=== PATIENT | male | born 1990 | race African-American/Black ===

== ENCOUNTER 2016-08-29 16:00 | Emergency (ER) | payer OTHER ==
[~2016-08-29] VITALS: Ht 180.3 cm; Wt 117.9 kg
[2016-08-29 16:10] VITALS: BP 154/92
[2016-08-29] MEDS ORDERED: ONDA4TAB10 SL (16:19)
--- NOTE | 2016-08-29 16:21 | ED.ADGEN ---
Past Medical History Past Medical History: Anxiety, Asthma, Hypertension Past Surgical History: Appendectomy Alcohol Use: None Drug Use: None Adult General Chief Complaint Chief Complaint: ABDOMINAL PAIN HPI HPI Patient is a 26 year old male presents emergency Department with a one-day history of nausea, vomiting, and diarrhea. Patient states that his symptoms of symptoms entirely resolve needs a note to go back to work. Patient denies any abdominal pain but did report that he gets a "bubbling" just prior to having the diarrhea. Patient denies any fever or chills. Review of Systems Review of Systems Constitutional: Denies fever or chills. [] Eyes: Denies change in visual acuity. [] HENT: Denies nasal congestion or sore throat. [] Respiratory: Denies cough or shortness of breath. [] Cardiovascular: Denies chest pain or edema. [] GI: Denies abdominal pain, nausea, vomiting, bloody stools or diarrhea. [] : Denies dysuria. [] Musculoskeletal: Denies back pain or joint pain. [] Integument: Denies rash. [] Neurologic: Denies headache, focal weakness or sensory changes. [] Endocrine: Denies polyuria or polydipsia. [] Lymphatic: Denies swollen glands. [] Psychiatric: Denies depression or anxiety. [] Allergies Allergies Allergies Coded Allergies Type Severity Reaction Last Updated Verified No Known Drug Allergies 08/29/16 No Physical Exam Physical Exam Constitutional: Well developed, well nourished, no acute distress, non-toxic appearance. [] HENT: Normocephalic, atraumatic, bilateral external ears normal, oropharynx moist, no oral exudates, nose normal. [] Eyes: PERRLA, EOMI, conjunctiva normal, no discharge. [] Neck: Normal range of motion, no tenderness, supple, no stridor. [] Cardiovascular:Heart rate regular rhythm, no murmur [] Lungs & Thorax: Bilateral breath sounds clear to auscultation [] Abdomen: Bowel sounds normal, soft, no tenderness, no masses, no pulsatile masses. [] Skin: Warm, dry, no erythema, no rash. [] Back: No tenderness, no CVA tenderness. [] Extremities: No tenderness, no cyanosis, no clubbing, ROM intact, no edema. [] Neurologic: Alert and oriented X 3, normal motor function, normal sensory function, no focal deficits noted. [] Psychologic: Affect normal, judgement normal, mood normal. [] Current Patient Data Vital Signs Vital Signs Date Time Temp Pulse Resp B/P Pulse Ox O2 Delivery O2 Flow Rate FiO2 08/29/16 16:10 98.0 109 18 95 Room Air 98.0 EKG EKG [] Radiology/Procedures Radiology/Procedures [] Course & Med Decision Making Course & Med Decision Making Pertinent Labs and Imaging studies reviewed. (See chart for details) Benign exam and no symptoms here. Patient was sent home with prescription for Zofran. He will follow-up with his doctor as needed and return to the emergency department sooner if he develops new or worsening symptoms. Impression: Gastroenteritis [] Dragon Disclaimer Dragon Disclaimer This electronic medical record was generated, in whole or in part, using a voice recognition dictation system. RUDY DEAN MD Aug 29, 2016 16:21
== END 2016-08-29 16:28 | disposition home or self-care (01) ==
LOC: ER 16:00
DX: K52.9 Noninfective gastroenteritis and colitis, unspecified (principal); I10 Essential (primary) hypertension; F41.9 Anxiety disorder, unspecified; J45.909 Unspecified asthma, uncomplicated; Z90.49 Acquired absence of other specified parts of digestive tract
CPT/HCPCS: 99283

== ENCOUNTER 2018-03-04 06:27 | Emergency (ER) | payer SELFPAY ==
[~2018-03-04] VITALS: Ht 180.3 cm; Wt 129.3 kg
[~2018-03-04 06:27] MED LIST: ONDA4TAB10 SL
--- NOTE | 2018-03-04 06:44 | PHYS DOC ---
Past Medical History Past Medical History: Anxiety, Asthma, Hypertension Past Surgical History: Appendectomy Alcohol Use: None Drug Use: None Adult General Chief Complaint Chief Complaint: SHORTNESS OF BREATH HPI HPI Patient is a 28 year old male who presents with anxiety. patient has a chronic hx of the same for which he takes prozac daily and xanax as needed. He states his xanax do not work to control his symptoms and sometimes needs to take 4 tablets at a time to gain relief. This morning, he was at work when he began to feel anxious and short of breath. He had onset of some MSK chest pain at the same time. He states the symptoms are exactly like prior anxiety symptoms. No CAD risk factors. Patient is nervous and anxious during the interview. He also states that his symptoms have been improved in the past after some breathing treatments. Review of Systems Review of Systems Constitutional: Denies fever or chills Eyes: Denies change in visual acuity HENT: Denies nasal congestion Respiratory: Denies cough or shortness of breath Cardiovascular: No additional information not addressed in HPI GI: Denies abdominal pain, nausea, vomiting : Denies dysuria or hematuria Musculoskeletal: Denies back pain Integument: Denies rash or skin lesions Neurologic: Denies headache All other systems were reviewed and found to be within normal limits, except as documented in this note. Current Medications Current Medications Current Medications Medications (Trade) Dose Ordered Sig/Estuardo Start Time Stop Time Status Last Admin Dose Admin Albuterol/ Ipratropium (Duoneb) 3 ml 1X ONCE 03/04/18 07:00 03/04/18 07:01 DC 03/04/18 06:56 3 ML Lorazepam (Ativan) 1 mg 1X ONCE 03/04/18 07:00 03/04/18 07:01 DC 03/04/18 06:56 1 MG Allergies Allergies Allergies Coded Allergies Type Severity Reaction Last Updated Verified No Known Drug Allergies 08/29/16 No Physical Exam Physical Exam Constitutional: Well developed, well nourished, no acute distress, non-toxic appearance HENT: Normocephalic, atraumatic, bilateral external ears normal, oropharynx moist Eyes: PERRLA, EOMI, conjunctiva normal Neck: Normal range of motion, no tenderness Cardiovascular:Heart rate regular rhythm, no murmur Lungs & Thorax: Bilateral breath sounds clear to auscultation Skin: Warm, dry, no erythema, no rash Back: No tenderness Extremities: No edema Neurologic: Alert and oriented X 3 Psychologic: Affect anxious, tearful Current Patient Data Vital Signs Vital Signs Date Time Temp Pulse Resp B/P (MAP) Pulse Ox O2 Delivery O2 Flow Rate FiO2 03/04/18 07:38 78 20 139/81 (100) 100 Room Air 03/04/18 06:29 98.0 98.0 EKG EKG No STEMI Interpretation Time: 07:25 Radiology/Procedures Radiology/Procedures [] Course & Med Decision Making Course & Med Decision Making Pertinent Labs and Imaging studies reviewed. (See chart for details) 06:45: Patient is seen and examined. Normal physical exam. Will give duoneb as he feels this has helped in the past. Ativan 1 mg IM. 07:35: EKG normal. Patient feeling improved. Plan for d/c to home. Patient advised to f/u with PCP regarding increasing his xanax dose. Has 0.5 mg tablets but states he has to take four of them at times to achieve sx relief. Family present and driving the patient home. He is agreeable to the plan of care. Dragon Disclaimer Dragon Disclaimer This electronic medical record was generated, in whole or in part, using a voice recognition dictation system. Departure Departure Referrals: UNKNOWN PCP NAME (PCP) MITCHEL PRIDE DO Mar 04, 2018 06:44
[2018-03-04] MEDS ORDERED: IPRATRPIUM/ALBUTEROL 0.5/2.5MG 3 ML NEBU. NEB ONE (07:00)
[2018-03-04 07:38] VITALS: BP 139/81
--- NOTE | 2018-03-04 12:35 | EKG ---
[facility] [address] [place] [address] Test Date: 2018-03-04 Test Time: 07:19:41 Pat Name: ANAID GAMEZ Department: Room: Gender: M Process Manufacturing Engineer: : 1990 Requested By: MITCHEL PRIDE Order Number: [id number] Reading MD: Mike Egan MD Measurements Intervals Campbell Rate: 68 P: 0 [place]: 164 QRS: 15 QRSD: 86 T: 0 QT: 390 QTc: 419 Interpretive Statements SINUS RHYTHM Electronically Signed On 03-07-2018 12:01:35 CDT by Mike Egan MD
== END 2018-03-04 07:38 | disposition home or self-care (01) ==
LOC: ER 06:27
DX: R06.02 Shortness of breath (principal); R07.89 Other chest pain; F41.9 Anxiety disorder, unspecified; J45.909 Unspecified asthma, uncomplicated; I10 Essential (primary) hypertension; Z90.89 Acquired absence of other organs
CPT/HCPCS: 93005; 94640; 96372; 99283; J2060; J7620

== ENCOUNTER 2019-11-27 09:10 | Emergency (ER) | payer BC, MEDICAID ==
[~2019-11-27] VITALS: Ht 180.3 cm; Wt 114.5 kg
[2019-11-27 09:51] LABS: BASO % 1 % (0-3); EOS # 0.1 x10^3/uL (0.0-0.7); EOS % 1 % (0-3); HEMATOCRIT 48.1 % (39.0-53.0); LYMPH % 37 % (24-48); MEAN CORPUSCULAR HEMOGLOBIN 29 pg (25-35); MEAN CORPUSCULAR HGB CONC 33 g/dL (31-37); MEAN CORPUSCULAR VOLUME 85 fL (79-100); MONO # 0.4 x10^3/uL (0.0-1.1); MONO % 8 % (0-9); NEUT # 2.9 x10^3/uL (1.8-7.7); NEUT % 53 % (31-73); PLATELET COUNT 201 x10^3/uL (140-400); RED BLOOD COUNT 5.63 x10^6/uL (4.30-5.70); RED CELL DISTRIBUTION WIDTH 14.4 % (11.5-14.5); WHITE BLOOD COUNT 5.4 x10^3/uL (4.0-11.0)
[2019-11-27 10:07] LABS: ALBUMIN 3.8 g/dL (3.4-5.0); CALCIUM 8.6 mg/dL (8.5-10.1); CREATININE 0.9 mg/dL (0.7-1.3); GFR 122.5; TOTAL BILIRUBIN 0.7 mg/dL (0.2-1.0); TOTAL PROTEIN 7.8 g/dL (6.4-8.2)
[2019-11-27 10:18] VITALS: BP 137/89
[2019-11-27] MEDS ORDERED: ONDA4TAB7 PO (10:49)
[2019-11-27] MEDS ORDERED: FAMO-63 PO (10:49)
--- NOTE | 2019-11-27 10:58 | PHYS DOC ---
Past Medical History Past Medical History: Anxiety, Asthma, Hypertension Additional Past Medical Histor: PREDIABETES Past Surgical History: Appendectomy Smoking Status: Former Smoker Alcohol Use: None Drug Use: None General Adult EDM: Chief Complaint: NAUSEA/VOMITING/DIARRHA HPI: HPI: Patient is a 29 year old male who presents with epigastric abdominal pain that has been ongoing for the last 4 or 5 days. He states that initially he had some diarrhea and nausea with it. He also had some vomiting. Over the last couple of days this is gotten better. He tried to go to work this morning and was sent here as they did not feel it was safe for him to be at work. He has not had any fevers, chills, sweats. He has been able to continue eating though it causes him bloating, gas, and pain. He has had something similar to this in the past and at that time was diagnosed with gastritis. He gets daily heartburn and bloating with eating prior to this. Review of Systems: Review of Systems: General: Denies fever, chills, sweats, fatigue Eyes: Denies drainage, blurred vision HENT: Denies rhinorrhea, sore throat Respiratory: Denies cough, shortness of breath, wheezing Cardiac: Denies edema, palpitations, chest pain GI: Reports abdominal pain, N/V MSK: Denies back pain, neck pain Skin: Denies rash, jaundice Neuro: Denies headache, dizziness Psychiatric: Denies SI/HI Heart Score: Risk Factors: Risk Factors: DM, Current or recent (<one month) smoker, HTN, HLP, family history of CAD, obesity. Risk Scores: Score 0 - 3: 2.5% MACE over next 6 weeks - Discharge Home Score 4 - 6: 20.3% MACE over next 6 weeks - Admit for Clinical Observation Score 7 - 10: 72.7% MACE over next 6 weeks - Early Invasive Strategies Allergies: Allergies: Allergies Coded Allergies Type Severity Reaction Last Updated Verified No Known Drug Allergies 11/27/19 No Physical Exam: PE: Constitutional: Well developed, well nourished, Cooperative, NAD, non-toxic appearing HEENT: Normocephalic, atraumatic, oropharynx moist, EOMI, PERRL, no drainage from eyes, normal conjunctiva Neck: Supple, normal range of motion, no stridor Cardiovascular: RRR, 2+ radial pulses bilaterally, no edema Respiratory: CTA bilaterally, no respiratory distress, no wheezing/crackles Abdomen: Soft, mild epigastric tenderness, nondistended, no masses Skin: Warm, dry, intact Extremities: No obvious deformities Neurologic: Alert and Oriented x3, motor and sensory function grossly normal, no focal deficits Psychologic: Normal affect, normal judgment, normal mood. No SI/HI Current Patient Data: Labs: Laboratory Tests Test 11/27/19 09:34 White Blood Count 5.4 x10^3/uL (4.0-11.0) Red Blood Count 5.63 x10^6/uL (4.30-5.70) Hemoglobin 16.0 g/dL (13.0-17.5) Hematocrit 48.1 % (39.0-53.0) Mean Corpuscular Volume 85 fL (79-100) Mean Corpuscular Hemoglobin 29 pg (25-35) Mean Corpuscular Hemoglobin Concent 33 g/dL (31-37) Red Cell Distribution Width 14.4 % (11.5-14.5) Platelet Count 201 x10^3/uL (140-400) Neutrophils (%) (Auto) 53 % (31-73) Lymphocytes (%) (Auto) 37 % (24-48) Monocytes (%) (Auto) 8 % (0-9) Eosinophils (%) (Auto) 1 % (0-3) Basophils (%) (Auto) 1 % (0-3) Neutrophils # (Auto) 2.9 x10^3/uL (1.8-7.7) Lymphocytes # (Auto) 2.0 x10^3/uL (1.0-4.8) Monocytes # (Auto) 0.4 x10^3/uL (0.0-1.1) Eosinophils # (Auto) 0.1 x10^3/uL (0.0-0.7) Basophils # (Auto) 0.0 x10^3/uL (0.0-0.2) Sodium Level 137 mmol/L (136-145) Potassium Level 4.0 mmol/L (3.5-5.1) Chloride Level 103 mmol/L (98-107) Carbon Dioxide Level 27 mmol/L (21-32) Anion Gap 7 (6-14) Blood Urea Nitrogen 14 mg/dL (8-26) Creatinine 0.9 mg/dL (0.7-1.3) Estimated GFR (Cockcroft-Gault) 122.5 BUN/Creatinine Ratio 16 (6-20) Glucose Level 103 mg/dL (70-99) H Calcium Level 8.6 mg/dL (8.5-10.1) Total Bilirubin 0.7 mg/dL (0.2-1.0) Aspartate Amino Transferase (AST) 18 U/L (15-37) Alanine Aminotransferase (ALT) 25 U/L (16-63) Alkaline Phosphatase 82 U/L (46-116) Total Protein 7.8 g/dL (6.4-8.2) Albumin 3.8 g/dL (3.4-5.0) Albumin/Globulin Ratio 1.0 (1.0-1.7) Lipase 57 U/L (73-393) L Laboratory Tests 11/27/19 09:34 Laboratory Tests 11/27/19 09:34 Vital Signs: Vital Signs Date Time Temp Pulse Resp B/P (MAP) Pulse Ox O2 Delivery O2 Flow Rate FiO2 11/27/19 09:24 98.2 57 16 160/105 (123) 100 Room Air 98.2 EKG: EKG: [] Radiology/Procedures: Radiology/Procedures: [] Course & Med Decision Making: Course & Med Decision Making Pertinent Labs and Imaging studies reviewed. (See chart for details) Patient is 29-year-old male who presents to the emergency room complaining of epigastric abdominal pain. Pain is worse with eating and is associated with bloating, increasing gas, nausea. This is very suggestive of gastritis or an a bdominal ulcer. He does not have any right upper quadrant tenderness. To rule out pancreatitis or an abnormal cholecystitis abdominal labs were ordered including LFTs and lipase. These were normal. At this time patient does not need an ultrasound given his normal labs and benign exam. He will be treated for gastritis. He will need to follow-up with a primary care physician who can give him referral to a GI doctor. Patient's test results and vitals while in the ED were fully reviewed and discussed with the patient. Patient is stable and at this time does not need admission to the hospital. We have discussed strict return precautions and the importance of following up with their Primary Care Physician. Patient stated understanding and was given an opportunity to ask any questions. Dragon Disclaimer: Dragon Disclaimer: This electronic medical record was generated, in whole or in part, using a voice recognition dictation system. Departure Departure Impression: Primary Impression: Gastritis Disposition: 01 HOME, SELF-CARE Condition: GOOD Patient Instructions: Gastritis, Adult, [id number] Scripts Ondansetron Hcl (ZOFRAN) 4 Mg Tablet 1 TAB PO PRN Q6-8HRS for nausea, #12 TAB Prov: MARJAN MALDONADO MD 11/27/19 Famotidine (PEPCID) 20 Mg Tablet 20 MG PO BID, #30 TAB Prov: MARJAN MALDONADO MD 11/27/19 MARJAN MALDONADO MD November 27, 2019 10:58
== END 2019-11-27 11:00 | disposition home or self-care (01) ==
LOC: ER 09:10
DX: K29.70 Gastritis, unspecified, without bleeding (principal); J45.909 Unspecified asthma, uncomplicated; I10 Essential (primary) hypertension; Z87.891 Personal history of nicotine dependence; Z90.89 Acquired absence of other organs
CPT/HCPCS: 36415; 80053; 83690; 85025; 99283

== ENCOUNTER 2020-03-14 09:44 | Emergency (ER) | payer BC, MEDICAID ==
[~2020-03-14] VITALS: Ht 180.3 cm; Wt 108.0 kg
[~2020-03-14 09:44] MED LIST changes: +FAMO-63 PO; +ONDA4TAB7 PO
--- NOTE | 2020-03-14 10:25 | PHYS DOC ---
Past Medical History Past Medical History: Anxiety, Asthma, GERD, Hypertension Additional Past Medical Histor: PREDIABETES Past Surgical History: Appendectomy Smoking Status: Current Every Day Smoker Additional Information: 2 PPD Alcohol Use: None Drug Use: None General Adult EDM: Chief Complaint: COUGH HPI: HPI: Patient is a 30 year old male who presented to ER today for evaluation of cough and trouble breathing for 3 to 4 days. Patient also has some nasal congestion, denies any sore throat. Patient is a smoker, history of asthma. Patient denies being exposed to anybody who tested positive COVID-19. Patient denies any fever, no chest pain, no abdominal pain, no nausea vomiting. Patient denies any recent travel or operation. Review of Systems: Review of Systems: Constitutional: Denies fever or chills. [] Eyes: Denies change in visual acuity. [] HENT: Denies nasal congestion or sore throat. [] Respiratory: Positive for cough and trouble breathing. Cardiovascular: Denies chest pain or edema. [] GI: Denies abdominal pain, nausea, vomiting, bloody stools or diarrhea. [] : Denies dysuria. [] Musculoskeletal: Denies back pain or joint pain. [] Integument: Denies rash. [] Neurologic: Denies headache, focal weakness or sensory changes. [] Endocrine: Denies polyuria or polydipsia. [] Lymphatic: Denies swollen glands. [] Psychiatric: Denies depression or anxiety. [] Heart Score: Risk Factors: Risk Factors: DM, Current or recent (<one month) smoker, HTN, HLP, family history of CAD, obesity. Risk Scores: Score 0 - 3: 2.5% MACE over next 6 weeks - Discharge Home Score 4 - 6: 20.3% MACE over next 6 weeks - Admit for Clinical Observation Score 7 - 10: 72.7% MACE over next 6 weeks - Early Invasive Strategies Allergies: Allergies: Allergies Coded Allergies Type Severity Reaction Last Updated Verified No Known Drug Allergies 11/27/19 No Physical Exam: PE: Constitutional: Well developed, well nourished, no acute distress, non-toxic appearance. [] HENT: Normocephalic, atraumatic, bilateral external ears normal, oropharynx moist, no oral exudates, nose normal. [] Eyes: PERRLA, EOMI, conjunctiva normal, no discharge. [] Neck: Normal range of motion, no tenderness, supple, no stridor. [] Cardiovascular:Heart rate regular rhythm, no murmur [] Lungs & Thorax: Bilateral breath sounds clear to auscultation [] Abdomen: Bowel sounds normal, soft, no tenderness, no masses, no pulsatile masses. [] Skin: Warm, dry, no erythema, no rash. [] Back: No tenderness, no CVA tenderness. [] Extremities: No tenderness, no cyanosis, no clubbing, ROM intact, no edema. [] Neurologic: Alert and oriented X 3, normal motor function, normal sensory function, no focal deficits noted. [] Psychologic: Affect normal, judgement normal, mood normal. [] Current Patient Data: Vital Signs: Vital Signs Date Time Temp Pulse Resp B/P (MAP) Pulse Ox O2 Delivery O2 Flow Rate FiO2 03/14/20 09:50 98.1 7 18 137/89 (105) 100 Room Air 98.1 EKG: EKG: [] Radiology/Procedures: Radiology/Procedures: [][facility] [address] [place] [address] IMAGING REPORT Signed PATIENT: ANAID GAMEZ PACCOUNT: [id number] : 1990 LOCATION: ER AGE: 30 SEX: M EXAM STATUS: REG ER ORD. PHYSICIAN: RA LINDSAY DO REASON: soa, cough for 3 days PROCEDURE: CHEST AP ONLY EXAM: Chest, single view. HISTORY: Shortness of breath. COMPARISON: 05/26/2015 FINDINGS: A frontal view of the chest is obtained. There is no infiltrate, pleural effusion or pneumothorax. The heart is normal in size. IMPRESSION: No acute pulmonary finding. Electronically signed by: Naomi Torres MD (03/14/2020 10:49 AM) [id number] DICTATED and SIGNED BY: NAOMI TORRES MD DATE: 03/14/20 1049 Course & Med Decision Making: Course & Med Decision Making Pertinent Labs and Imaging studies reviewed. (See chart for details) [] Dragon Disclaimer: Dragon Disclaimer: This electronic medical record was generated, in whole or in part, using a voice recognition dictation system. Departure Departure Impression: Primary Impression: Acute bronchitis Disposition: 01 HOME, SELF-CARE Condition: STABLE Referrals: MARY AWAD DO (PCP) please call your family doctor for follow up next week Patient Instructions: Bronchitis Additional Instructions: Thank you for visiting our Emergency Department. We appreciate you trusting us with your care. If any additional problems come up don't hesitate to return to visit us. Please follow up with your primary care provider so they can plan additional care if needed and know about the problem that you had. If symptoms worsen come back to the Emergency Department. Any concerning symptoms that start such as chest pain, shortness of air, weakness or numbness on one side of the body, running high fevers or any other concerning symptoms return to the ER. Justicifation of Admission Dx: Justifications for Admission: Justification of Admission Dx: N/A RA LINDSAY DO Mar 14, 2020 10:24
--- NOTE | 2020-03-14 10:51 | RAD ---
EXAM: Chest, single view. HISTORY: Shortness of breath. COMPARISON: 05/26/2015 FINDINGS: A frontal view of the chest is obtained. There is no infiltrate, pleural effusion or pneumothorax. The heart is normal in size. IMPRESSION: No acute pulmonary finding. Electronically signed by: Naomi Murry MD (03/14/2020 10:49 AM) [id number]
[2020-03-14 10:57] VITALS: BP 120/81
== END 2020-03-14 11:20 | disposition home or self-care (01) ==
LOC: ER 09:44
DX: J20.9 Acute bronchitis, unspecified (principal); J45.909 Unspecified asthma, uncomplicated; K21.9 Gastro-esophageal reflux disease without esophagitis; I10 Essential (primary) hypertension; F17.200 Nicotine dependence, unspecified, uncomplicated
CPT/HCPCS: 71045; 99283

== ENCOUNTER 2021-05-20 10:28 | Day surgery (SDC) | payer MEDICAID ==
[~2021-05-20] VITALS: Ht 180.3 cm; Wt 97.5 kg
[~2021-05-20 10:28] MED LIST changes: +ACETAMINOPHEN 500 MG TABLET PO PRN; +BUPIVACAINE-EPI 0.25% 30 ML VIAL KIT. ONE; +HYDR-2759 PO; +HYDROmorphone 2 MG/ML VIAL IVP PRN; +IBUP-1027 PO; +IV RINGERS,LACTATED 1000ML 1,000 ML IV SCH; +OMEP20TA8 PO; +PROCHLORPERAZINE 10 MG/2 ML VIAL. IVP PRN; +fentaNYL PF VIAL 100 MCG/2 ML VIAL IVP PRN
[2021-05-20 11:07] VITALS: BP 137/79
--- NOTE | 2021-05-20 11:13 | NUR ---
IAN KIT 2.5MG 1CC GIVEN IV PRE PROCEDURE PER DR. SEPULVEDA ORDERS.
[2021-05-20] MEDS ORDERED: GLYCOPYRROLATE 1 MG/5 ML VIAL. ONE (11:54)
[2021-05-20] MEDS ORDERED: HYDROmorphone 2 MG/ML VIAL ONE (11:54)
[2021-05-20] MEDS ORDERED: ROCURONIUM 50 MG/5 ML VIAL. ONE (11:54)
[2021-05-20] MEDS ORDERED: NEOSTIGMINE METHYLSULFATE 5 MG/5 ML SYRINGE. ONE ×2 (11:55→13:30)
[2021-05-20] MEDS ORDERED: PROPOFOL 10 MG/ML (20ML) VIAL. IV ONE ×2 (11:57→13:28)
[2021-05-20] MEDS ORDERED: DEXAMETHASONE SOD PHOS 4 MG/ML VIAL ONE (11:58)
[2021-05-20] MEDS ORDERED: LIDOCAINE 2% PF 5 ML VIAL. ONE (11:58)
[2021-05-20] MEDS ORDERED: ONDANSETRON PF 4 MG/2 ML VIAL. ONE (11:59)
[2021-05-20] MEDS ORDERED: FAMOTIDINE 20 MG/2 ML VIAL ONE (11:59)
[2021-05-20] MEDS ORDERED: KETOROLAC 30 MG/ML VIAL. ONE (11:59)
[2021-05-20] MEDS ORDERED: MIDAZOLAM HCL/PF 2 MG/2 ML VIAL. ONE (12:34)
--- NOTE | 2021-05-20 13:36 | PDOC4 ---
Operative Note Operative Note Date: May 20, 2021 at 1333 Preoperative diagnosis: Chronic cholecystitis cholelithiasis Postoperative diagnosis: Same Procedure: Laparoscopic cholecystectomy with fluorescein cholangiography Surgeon: Chilo Specimen: Gallbladder Dictation: Patient is a 31-year-old male who is had right upper quadrant abdominal pain ultrasound showing gallstones. The procedure of laparoscopic cholecystectomy was explained to the patient in detail risk-benefit were also discussed including bleeding infection injury to intra-abdominal contents possible necessitating further open operations alternatives to this procedure also discussed with patient who seemed to understand and gave a verbal and written consent to have the procedure performed. Patient was taken to the operating room placed in the supine position general anesthesia was initiated once patient was sleeping intubated his abdomen was prepped and draped usual sterile fashion using ChloraPrep. An area just below the umbilicus was injected with quarter percent Marcaine with epinephrine incision was made with a blade scalpel and a varies needle was placed unfortunately there was some difficulty with placing the varies needle did not get good pneumoperitoneum so a 5 mm Visiport was placed in the left upper quadrant under direct visualization into the abdomen creating pneumoperitoneum once this was complete 11 mm port was placed at the umbilicus abdomen was inspected no other abnormalities were noted. A 5 mm ports placed in the epigastrium a 5 mm port was placed in the right midabdomen and 5 mm ports placed in the right lateral abdomen the dome of the gallbladder is grasped retracted cephalad the infundibulum the gallbladder is grasped retracted laterally exposing the triangle of adherent tissues the triangle were taken down with blunt dissection exposing the cystic duct and cystic artery both were doubly clipped and transected the gallbladder is taken off the liver with hook electrocautery placed in Endo Catch bag removed and the umbilicus right upper quadrant was irrigated and suctioned dry hemostasis deemed be appropriate the pneumoperitoneum was reduced all ports were removed the fascial defect at the umbilicus was closed with a [id number] 0 Vicryl casillas ture and skin was reapproximated all port sites for subcuticular Monocryl Mastisol Steri-Strips and island dressings were applied. Patient was awakened and extubated operating room taken to recovery in stable condition all sponge instrument needle counts listed as correct estimated blood loss 10 mL GILMAR FERRIS MD May 20, 2021 13:36
[2021-05-20] MEDS ORDERED: OXYC-325 PO (13:38)
--- NOTE | 2021-05-20 13:39 | DISCH ---
DISCHARGE INSTRUCTIONS Condition on Discharge Condition on Discharge: Stable Activity After Discharge Activity Instructions for Disc: Avoid exertion Other activity instructions: No lifting more than 20 pounds for 2-week Diet after Discharge Diet after Discharge: Low Fat Wound Incision Care Other wound/incision instructi: Caroline shower in 24-hour Contacting the DRKvng after DC Call your doctor for: If your condition worsens Follow-Up Follow up with: Dr. Ferris in 2 weeks GILMAR FERRIS MD May 20, 2021 13:39
[2021-05-20] MEDS ORDERED: oxyCODONE/APAP 5/325 1 TAB TABLET PO ONE (14:15)
[2021-05-20] MEDS ORDERED: PROCHLORPERAZINE 10 MG/2 ML VIAL. ONE (14:21)
[2021-05-20] MEDS ORDERED: MORPHINE SULFATE 2 MG/ML INJ. ONE (14:21)
[2021-05-20] MEDS ORDERED: oxyCODONE/APAP 5/325 1 TAB TABLET ONE (14:22)
[2021-05-20] MEDS: MORPHINE SULFATE 2 MG/ML INJ. IVP PRN ×2 (14:24→14:42)
[2021-05-20] MEDS ORDERED: SEVOFLURANE 31 TO 60 MINUTES. IH ONE (14:30)
[2021-05-20 15:00] VITALS: BP 103/61
--- NOTE | 2021-05-22 15:11 | PATHOLOGY ---
[facility] Accession Number: [id number] . 01 Material submitted: . gallbladder - GALLBLADDER WITH CONTENTS . 01 Clinical history: . CHRONIC CHOLECYSTITIS= CALCULUS LAPAROSCOPIC CHOLECYSTECTOMY . 02 Diagnosis: Gallbladder, laparoscopic cholecystectomy: - Cholelithiasis. - Chronic cholecystitis. ([facility]; 05/22/2021) S 05/22/2021 1337 Local . 02 Comment: There is no evidence of malignancy. ([facility]; 05/22/2021) . 02 Electronically signed: . Angel Peck MD, Pathologist NPI- [id number] . 01 Gross description: . Fixative: Formalin Labeled: Gallbladder with contents Specimen received: Intact gallbladder Dimensions: 9.0 x 2.5 x 2.4 cm Serosa: Light carrizales-luna and light green Lymph node: None identified Mucosa: Velvety and bile-stained Average wall thickness: 0.2 cm Calculi: Present, bright yellow-green and multifaceted Abnormalities: None identified . A1- Batch Records Clerk body, fundus, and the cystic duct margin. ([facility]; 05/21/2021) [facility] 05/21/2021 1242 Local . 02 Pathologist provided ICD-10: K80.10 . 02 CPT . 336445 Specimen Comment: A courtesy copy of this report has been sent to [phone], [phone] Specimen Comment: [id number] Specimen Comment: Report sent to / DR AWAD Specimen Comment: A duplicate report has been generated due to demographic updates. Performed at: [address], [place], [place] [id number] MD Elias Perez MD Phone: [phone] Performed at: 02 [facility] [address] [place], [place] [id number] MD Angel Peck MD Phone: [phone]
[2021-05-23] MEDS ORDERED: ALPR0.5T6 PO (22:16)
[2021-05-26] MEDS ORDERED: SENN1TAB99 PO (08:07)
== END 2021-05-20 15:32 | disposition home or self-care (01) ==
LOC: SURG 10:28
PROVIDERS: ATTEND Surgery
DX: K80.10 Calculus of gallbladder with chronic cholecystitis without obstruction (principal); I10 Essential (primary) hypertension; K21.9 Gastro-esophageal reflux disease without esophagitis; M19.90 Unspecified osteoarthritis, unspecified site; F41.9 Anxiety disorder, unspecified; F17.210 Nicotine dependence, cigarettes, uncomplicated; Z79.899 Other long term (current) drug therapy; Z72.89 Other problems related to lifestyle; Z98.890 Other specified postprocedural states
CPT/HCPCS: 47562; 88304; A4209; A4364; A4930; A6219; J0690; J0780; J1100; J1170; J1885; J2250; J2270; J2405; J2704; J2710; J3490; A4657